=== PATIENT | male | born 1940 | race Caucasian/White ===

== ENCOUNTER 2024-10-31 09:22 | Emergency (ER) | payer MEDICARE, BC ==
[2024-10-31] MEDS: Sodium Chloride 0.9% 10 ML Syringe FLUSH PRN (10:10)
[2024-10-31] MEDS: Sodium Chloride 0.9% 100 ML IV ONE (10:10)
[2024-10-31 10:11] LABS: BASOPHILS ABSOLUTE AUTO 0.03 K/uL (0.00-0.10); BASOPHILS PERCENT AUTO 0.3 % (0.1-1.3); EOSINOPHILS ABSOLUTE AUTO 0.01 K/uL (0.00-0.40); EOSINOPHILS PERCENT AUTO 0.1 % (0.0-5.4); HEMATOCRIT 43.2 % (38.4-49.7); IMMATURE GRAN ABSOLUTE AUTO 0.03 K/uL (0.00-0.23); IMMATURE GRAN PERCENT AUTO 0.3 % (0.0-0.7); LYMPHOCYTES ABSOLUTE AUTO 1.01 K/uL (0.8-3.3); LYMPHOCYTES PERCENT AUTO 10.2 % (11.4-47.7); MEAN CORPUSCULAR HGB CONC 32.4 g/dL (31.6-35.5); MEAN CORPUSCULAR VOLUME 95.8 fL (81.4-99.0); MONOCYTES ABSOLUTE AUTO 0.52 K/uL (0.20-0.90); MONOCYTES PERCENT AUTO 5.2 % (3.3-12.6); NEUTROPHILS ABSOLUTE AUTO 8.34 K/uL (1.0-7.6); NEUTROPHILS PERCENT AUTO 83.9 % (40.0-78.1); PLATELET COUNT,PLT 184 K/uL (130-375); RED BLOOD CELL COUNT 4.51 M/uL (4.14-5.76); WHITE BLOOD CELL COUNT,WBC 9.9 K/uL (3.2-11.0)
[2024-10-31] MEDS: Iopamidol 755 Mg/ML 100 ML Bottle IV SCH (10:11)
[2024-10-31 10:15] LABS: PROTHROMBIN TIME 10.6 sec (9.2-10.6); PTT,PARTIAL THROMBOPLSTIN TIME 23.6 sec (21.8-27.3)
[2024-10-31 10:20] LABS: ANION GAP 7.8 mmol/L (5.0-14.0); CREATININE 0.8 mg/dL (0.8-1.3); EST CRCL DRUG DOSING (CG) 63.19 mL/min; TROPONIN I HIGH SENSITIVITY 9.9 pg/mL (<=60.3)
[2024-10-31] MEDS: Meclizine 25 MG Tab PO ONE (12:31)
== END 2024-10-31 14:15 | disposition home or self-care (01) ==
LOC: JP.ED 09:22
DX: H81.10 Benign paroxysmal vertigo, unspecified ear (principal); Z79.899 Other long term (current) drug therapy; Z79.02 Long term (current) use of antithrombotics/antiplatelets
CPT/HCPCS: 36415; 70450; 70496; 70498; 80048; 84484; 85025; 85610; 85730; 93005; 99284; A9270; Q9967; 93010; 99283